=== PATIENT | male | born 1935 | race Caucasian/White ===

== ENCOUNTER 2018-01-18 05:37 | Day surgery (SDC) | payer MEDICARE, OTHER ==
[2018-01-11 11:12] LABS: BASOPHILS % (AUTO) 0.8 % (0-1); EOSINOPHILS # (AUTO) 0.2 X10'3 (0-0.9); EOSINOPHILS % (AUTO) 4.5 % (0-6); LYMPHOCYTES # (AUTO) 1.1 X10'3 (1.1-4.8); MEAN CORPUSCULAR HEMOGLOBIN 29.8 PG (27.0-31.0); MEAN CORPUSCULAR HGB CONC 33.5 % (33.0-36.5); MEAN PLATELET VOLUME 8.6 FL (7.4-10.4); MONOCYTES # (AUTO) 0.6 X10'3 (0-0.9); MONOCYTES % (AUTO) 11.4 % (2-12); NEUTROPHILS # (AUTO) 3.3 X10'3 (1.8-7.7); NEUTROPHILS % (AUTO) 62.3 % (42-75); PRE OP HEMATOCRIT 40.6 % (42.0-52.0); PRE OP HEMOGLOBIN 13.6 g/dL (14.0-17.9); PRE OP PLATELET COUNT 206 X10'3 (140-440); RED BLOOD COUNT 4.57 X10'6 (4.70-6.10); RED CELL DISTRIBUTION WIDTH 16.9 % (11.5-14.5)
[2018-01-11 11:21] LABS: PRE OP PROTIME 10.1 SECONDS (9.0-12.0)
[2018-01-11 11:31] LABS: ALBUMIN 3.4 G/DL (3.4-5.0); ALBUMIN/GLOBULIN RATIO 0.8 (1.1-1.5); ALKALINE PHOSPHATASE 93 IU/L (46-116); BLOOD UREA NITROGEN 20 MG/DL (7-18); BUN/CREATININE RATIO 22.2 (5.4-32.0); CALCIUM 9.2 MG/DL (8.5-10.1); CHLORIDE 102 MMOL/L (99-107); PRE OP ALT 21 U/L (30-65); PRE OP ANION GAP 5 (8-16); PRE OP AST 22 U/L (10-37); PRE OP BILIRUB, TOTAL 0.4 MG/DL (0.0-1.0); PRE OP GLUCOSE 95 MG/DL (70-104); PRE OP POTASSIUM 4.1 MMOL/L (3.4-5.1); PRE OP SODIUM 137 MMOL/L (135-145); TOTAL CARBON DIOXIDE 30.5 MMOL/L (24-32); TOTAL PROTEIN 7.9 G/DL (6.4-8.2); eGFR 80 ML/MIN
[~2018-01-18] VITALS: Ht 190.5 cm; Wt 98.7 kg
[2018-01-18] VITALS (21 sets, daily range): BP systolic 96–148; BP diastolic 62–97
[~2018-01-18 05:37] MED LIST: NOR5T PO; ceFAZolin 1,000 MG/D5W 50ML IVPB Premixed bag IV ONE
[2018-01-18] MEDS ORDERED: LIDOcaine 1% (10mg/ml) 2ml vial ONE (06:01)
[2018-01-18] MEDS ORDERED: neomy sulf/polymyxin B sulf. GU irrigation 1ml amp IR ONE ×2 (06:39)
[2018-01-18] MEDS ORDERED: fentaNYL/PF 50MCG/1 ML 2ML syringe ONE (07:22)
[2018-01-18] MEDS ORDERED: midazolam 2 mg/2 ml injection ONE (07:22)
[2018-01-18] MEDS ORDERED: ringers solution, lacted 1,000 ML IV SCH (08:09)
[2018-01-18] MEDS ORDERED: meperidine/PF 25mg/ml syringe IV PRN ×3 (08:10)
[2018-01-18] MEDS ORDERED: proCHLORperazine 10 MG/2 ml inj IV PRN ×2 (08:10→08:30)
[2018-01-18] MEDS ORDERED: morphine 4 MG/ML inj SYRINge IV PRN ×2 (08:10)
[2018-01-18] MEDS ORDERED: ondansetron/PF 4mg/2ml inj IV PRN ×2 (08:10→08:30)
[2018-01-18] MEDS ORDERED: zolpidem 5mg tablet PO PRN (08:30)
[2018-01-18] MEDS ORDERED: acetaminophen 325mg tablet PO PRN (08:30)
[2018-01-18] MEDS ORDERED: opium/belladonna alkaloids No. 15A 30mg rectal suppository RC PRN (08:30)
[2018-01-18] MEDS ORDERED: mag hydrox/Alum hydrox/simeth 30ml oral suspension PO PRN (08:30)
[2018-01-18] MEDS ORDERED: oxybutynin 5mg tablet PO PRN (08:30)
[2018-01-18] MEDS: potassium cl 20mEq in 1/2 NS 1,000 ML IV SCH ×3 (11:50→18:56)
[2018-01-18] MEDS ORDERED: DOCU-28 PO (16:14)
[2018-01-18] MEDS: ceFAZolin 1GM/D5W- ADD-VANTAGE 50 ML IV SCH (16:24)
[2018-01-18] MEDS: docusate sod 100mg capsule PO SCH (20:08)
[2018-01-19] VITALS: BP 152/80
[2018-01-19] MEDS: ceFAZolin 1GM/D5W- ADD-VANTAGE 50 ML IV SCH ×2 (00:11→07:27)
[2018-01-19] MEDS: potassium cl 20mEq in 1/2 NS 1,000 ML IV SCH ×2 (02:49→11:45)
[2018-01-19 04:00] VITALS: BP 160/97
[2018-01-19] MEDS ORDERED: ringers solution, lacted 1,000 ML IV SCH (05:00)
[2018-01-19] MEDS ORDERED: famotidine 20mg tablet PO ONE (05:30)
[2018-01-19 05:39] LABS: BASOPHILS % (AUTO) 0.8 % (0-1); EOSINOPHILS # (AUTO) 0.4 X10'3 (0-0.9); EOSINOPHILS % (AUTO) 5.8 % (0-6); HEMATOCRIT 36.2 % (42.0-52.0); HEMOGLOBIN 12.1 g/dl (14.0-17.9); LYMPHOCYTES # (AUTO) 1.2 X10'3 (1.1-4.8); LYMPHOCYTES % (AUTO) 19.6 % (21-51); MEAN CORPUSCULAR HEMOGLOBIN 29.6 PG (27.0-31.0); MEAN CORPUSCULAR HGB CONC 33.3 % (33.0-36.5); MEAN CORPUSCULAR VOLUME 88.8 FL (78-98); MEAN PLATELET VOLUME 9.1 FL (7.4-10.4); MONOCYTES # (AUTO) 0.7 X10'3 (0-0.9); MONOCYTES % (AUTO) 11.2 % (2-12); NEUTROPHILS # (AUTO) 3.8 X10'3 (1.8-7.7); NEUTROPHILS % (AUTO) 62.6 % (42-75); PLATELET COUNT 192 X10'3 (140-440); RED BLOOD COUNT 4.08 X10'6 (4.70-6.10); RED CELL DISTRIBUTION WIDTH 16.3 % (11.5-14.5); WHITE BLOOD COUNT 6.1 X10'3 (4.5-11.0)
[2018-01-19 06:13] LABS: ALBUMIN 2.7 G/DL (3.4-5.0); ANION GAP 7 (8-16); BLOOD UREA NITROGEN 19 MG/DL (7-18); BUN/CREATININE RATIO 18.8 (5.4-32.0); CALCIUM 8.7 MG/DL (8.5-10.1); CHLORIDE 106 MMOL/L (99-107); CREATININE 1.01 MG/DL (0.60-1.10); GLUCOSE 81 MG/DL (70-104); POTASSIUM 4.1 MMOL/L (3.5-5.1); SODIUM 140 MMOL/L (135-145); TOTAL CARBON DIOXIDE 27.5 MMOL/L (24-32); eGFR 70 ML/MIN
[2018-01-19 07:15] VITALS: BP 140/94
[2018-01-19] MEDS: docusate sod 100mg capsule PO SCH (07:27)
[2018-01-19] MEDS ORDERED: pantoprazole 40mg Tablet.DR PO SCH (07:30)
[2018-01-19] MEDS ORDERED: amLODIPine 5mg tablet PO SCH (08:00)
[2018-01-19 11:31] VITALS: BP 162/92
== END 2018-01-19 13:12 | disposition home or self-care (01) ==
LOC: PAS 05:37 → SUR 3N 09:42 → PAS 01-19 13:12
PROVIDERS: ATTEND Urology
DX: N40.0 Benign prostatic hyperplasia without lower urinary tract symptoms (principal); I10 Essential (primary) hypertension; M19.90 Unspecified osteoarthritis, unspecified site; G47.33 Obstructive sleep apnea (adult) (pediatric); I25.10 Atherosclerotic heart disease of native coronary artery without angina pectoris; Z79.2 Long term (current) use of antibiotics; Z95.5 Presence of coronary angioplasty implant and graft; Z87.891 Personal history of nicotine dependence; Z79.01 Long term (current) use of anticoagulants; Z96.651 Presence of right artificial knee joint; Z96.642 Presence of left artificial hip joint; Z88.8 Allergy status to other drugs, medicaments and biological substances; Z79.899 Other long term (current) drug therapy; Z98.890 Other specified postprocedural states
CPT/HCPCS: 36415; 52601; 71045; 80048; 80053; 85025; 85610; 85730; 86885; 86900; 86901; 93005; A4346; A4615; A6255; J0690; J2250; J3010; J3490; J7030; J7120; A4402